=== PATIENT | female | born 1945 | race Caucasian/White ===

== ENCOUNTER → 2017-02-11 | Day surgery (SDC) | payer MEDICARE ==
[~2017-02-11] MED LIST: AMLO5TAB96 PO; CYCL-36 PO; DEXTROSE 5% IN WATER 500 ML BAG IV ONE; DYAZ37.52 PO; FEXO180 PO; GEMF600 PO; GLUC10TA3 PO; LACTATED RINGER'S 1000 ML INJ 1,000 ML ONE; LANTUSP SQ; LISI40TA PO; METF-324 PO; NOVOLOGP2 SQ; OMEP20CA5 PO; PROPOFOL 500 MG/50 ML BTL IV ONE; SIMV20 PO; TRAM50TA PO
--- NOTE | 2017-02-11 10:58 | GIPROC ---
[facility] [address] [facility], [address] COLONOSCOPY PROCEDURE REPORT EXAM DATE: 02/11/2017 PATIENT NAME: Sheri Almodovar MR #: [id number] BIRTHDATE: 1945 ENDOSCOPIST: Caryn Farmer MD ORDER #: [id number] REST ROOM ATTENDANT: Ashley Jaramillo RN STATUS: outpatient INDICATIONS: The patient is a 72 yr old female here for a colonoscopy due to diarrhea PROCEDURE PERFORMED: Colonoscopy with biopsy MEDICATIONS: None and Per Anesthesia. PREP QUALITY: fair PREP TYPE:GoLytely ESTIMATED BLOOD LOSS: None CONSENT: The patient understands the risks and benefits of the procedure and understands that these risks include, but are not limited to: sedation, allergic reaction, infection, perforation and/or bleeding. Alternative means of evaluation and treatment include, among others: physical exam, x-rays, and/or surgical intervention. The patient elects to proceed with this endoscopic procedure. medical equipment was checked for proper function. Hand hygiene and appropriate measures for infection prevention was taken. After the risks, benefits and alternatives of the procedure were thoroughly explained, Informed consent was verified, confirmed and timeout was successfully executed by the treatment team. A digital exam revealed internal hemorrhoids The EC-2990Li ([id number]) endoscope was introduced through the anus and advanced to the cecum, which was identified by both the appendix and ileocecal valve. The instrument was then slowly withdrawn as the colon was fully examined. COLON FINDINGS: Normal colon -some semisolid stool agressive washing, large amount of bile suctioned-random biopsies from ascending and descending r/o microscopic colitis. Retroflexed views revealed internal hemorrhoids and Retroflexed views revealed small internal hemorrhoids The scope was then completely withdrawn from the patient and the procedure terminated. PROCEDURE WITHDRAWAL TIME:10minutes ADVERSE EVENTS: There were no complications. IMPRESSIONS: 1. Normal colon -some semisolid stool agressive washing, large amount of bile suctioned-random biopsies from ascending and descending r/o microscopic colitis 2. Retroflexed views revealed internal hemorrhoids 3. Retroflexed views revealed small internal hemorrhoids 4. Revealed internal hemorrhoids RECOMMENDATIONS: 1. Await biopsy results. Biopsy results will not be ready for 7-10 days. If you don't hear from us in two weeks, call our office for results. 2. Probiotics from any [facility] or health food store RECALL: Colonoscopy, pending biopsy results Caryn Farmer MD eSigned: Caryn Farmer MD 02/11/2017 10:57 AM cc: [facility] and Anthony Nuno M.D.
--- NOTE | 2017-02-11 11:01 | GIPROC ---
[facility] [address] [facility], [address] EGD PROCEDURE REPORT EXAM DATE: 02/11/2017 PATIENT NAME: Sheri Almodovar MR #: [id number] BIRTHDATE: 1945 ATTENDING: Caryn Farmer MD ORDER #: [id number] COMMUNITY ENGAGEMENT LEADER: Ashley Jaramillo RN STATUS: outpatient INDICATIONS: The patient is a 72 yr old female here for an EGD due to diarrhea , reflux PROCEDURE PERFORMED: EGD w/ biopsy MEDICATIONS: None and Per Anesthesia. TOPICAL ANESTHETIC: none CONSENT: The patient understands the risks and benefits of the procedure and understands that these risks include, but are not limited to: sedation, allergic reaction, infection, perforation and/or bleeding. Alternative means of evaluation and treatment include, among others: physical exam, x-rays, and/or surgical intervention. The patient elects to proceed with this endoscopic procedure. medical equipment was checked for proper function. Hand hygiene and appropriate measures for infection prevention was taken. After the risks, benefits and alternatives of the procedure were thoroughly explained, Informed consent was verified, confirmed and timeout was successfully executed by the treatment team. The patient was anesthetized with topical anesthesia and the EC-2990Li ([id number]) endoscope was introduced through the mouth and advanced to the second portion of the duodenum. Retroflexed views revealed a hiatal hernia The gastroscope was then slowly withdrawn and removed. Gastritis antrum-biopsy esophagitis distal esophagus -biopsy. random biopsies from duodenum second portion-r/o celiac disease ADVERSE EVENTS: There were no complications. IMPRESSIONS: 1. Gastritis antrum-biopsy esophagitis distal esophagus -biopsy 2. Retroflexed views revealed a hiatal hernia RECOMMENDATIONS: 1. Await biopsy results. Biopsy results will not be ready for 7-10 days. If you don't hear from us in two weeks, call our office for biopsy results. 2. Anti-reflux regimen 3. Continue PPI 4. Avoid NSAIDS PATIENT CONDITION: stable DISPOSITION: Home REPEAT EXAM: EGD pending biopsy results Caryn Farmer MD eSigned: Caryn Farmer MD 02/11/2017 11:01 AM cc: Kvng Howell [facility] Kimberli Nuno M.D.
== END | disposition home or self-care (01) ==
LOC: ESDC 08:24
PROVIDERS: ATTEND Internal Medicine Gastroenterology
DX: R19.7 Diarrhea, unspecified (principal); K20.9 Esophagitis, unspecified; K64.8 Other hemorrhoids; K21.9 Gastro-esophageal reflux disease without esophagitis; K29.70 Gastritis, unspecified, without bleeding; E11.9 Type 2 diabetes mellitus without complications; Z79.4 Long term (current) use of insulin
CPT/HCPCS: 00740; 00810; 43239; 45380; 82948; 88305; 88312; J7060; J7120